=== PATIENT | male | born 1980 | race American Indian/Alaskan Native ===

== ENCOUNTER 2017-02-02 11:48 | Emergency (ER) | payer OTHER ==
[2017-02-02 11:49] VITALS: BMI 20.3
[2017-02-02 11:59] VITALS: TEMP 98.9
--- NOTE | 2017-02-02 12:14 | ED PDOC ---
Arrival/HPI - General Chief Complaint: Lower Extremity Problem/Injury Time Seen by Provider: 02/02/17 12:01 Historian: Patient - History of Present Illness Narrative History of Present Illness (Text): 02/02/17 12:04 A 36 year old male, with no significant past medical history, presents to the emergency department complaining of right foot 4th and 5th digit toe swelling pain for 2 weeks. Patient claims he cannot wear socks with his shoes. 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 Patient denies of fever or any other complaints. No PMD Time/Duration: < week (2 weeks) Past Medical History - Provider Review Nursing Documentation Reviewed: Yes - Infectious Disease Hx of Infectious Diseases: None - Tetanus Immunization Tetanus Immunization: Unknown - Past Medical History Past Medical History: No Previous - Cardiac Hx Cardiac Disorders: No - Pulmonary Hx Respiratory Disorders: No - Neurological Hx Neurological Disorder: Yes Hx Dizziness: Yes - HEENT Hx HEENT Disorder: No - Renal Hx Renal Disorder: No - Endocrine/Metabolic Hx Endocrine Disorders: No - Hematological/Oncological Hx Blood Disorders: No Hx Blood Transfusions: (NA) Hx Blood Transfusion Reaction: (NA) - Integumentary Hx Dermatological Disorder: No - Musculoskeletal/Rheumatological Hx Musculoskeletal Disorders: No Hx Falls: No - Gastrointestinal Hx Gastrointestinal Disorders: No - Genitourinary/Gynecological Hx Genitourinary Disorders: No - Psychiatric Hx Psychophysiologic Disorder: No Hx Depression: No Hx Emotional Abuse: No Hx Physical Abuse: No Hx Substance Use: No - Past Surgical History Past Surgical History: No Previous - Anesthesia Hx Anesthesia: No Hx Anesthesia Reactions: (NA) Hx Malignant Hyperthermia: (NA) - Suicidal Assessment Feels Threatened In Home Enviroment: No Family/Social History - Physician Review Nursing Documentation Reviewed: Yes Family/Social History: No Known Family HX Smoking Status: Heavy Smoker > 10 Cigarettes Daily Hx Alcohol Use: Yes Hx Substance Use: No Allergies/Home Meds Allergies/Adverse Reactions: Allergies No Known Allergies Allergy (Verified 09/01/15 12:37) Review of Systems - Physician Review All systems were reviewed & negative as marked: Yes - Review of Systems Constitutional: absent: Fevers Musculoskeletal: Other (right foot 4th & 5th digit toe swelling pain) Physical Exam Vital Signs Reviewed: Yes Vital Signs Temp Pulse Resp BP Pulse Ox 02/02/17 11:55 98.9 F 86 18 116/80 98 Temperature: Afebrile Blood Pressure: Normal Pulse: Regular Respiratory Rate: Normal Appearance: Positive for: Unkept Pain Distress: None Mental Status: Positive for: Alert and Oriented X 3 - Systems Exam Head: Present: Atraumatic, Normocephalic Pupils: Present: PERRL Extroacular Muscles: Present: EOMI Conjunctiva: Present: Normal Mouth: Present: Moist Mucous Membranes Neck: Present: Normal Range of Motion Respiratory/Chest: Present: Clear to Auscultation, Good Air Exchange. No: Respiratory Distress, Accessory Muscle Use Cardiovascular: Present: Regular Rate and Rhythm, Normal S1, S2. No: Murmurs Abdomen: Present: Normal Bowel Sounds. No: Tenderness, Distention, Peritoneal Signs Back: Present: Normal Inspection Upper Extremity: Present: Normal Inspection. No: Cyanosis, Edema Lower Extremity: Present: Erythema (mild erythema of right foot 4th and 5th digits), Other (intertriginous between 4th and 5th digit right foot, foul smell , no bone exposure) Neurological: Present: GCS=15, CN II-XII Intact, Speech Normal Skin: Present: Other (excoriation of right foot) Psychiatric: Present: Alert, Oriented x 3, Normal Insight, Normal Concentration Medical Decision Making ED Course and Treatment: 02/02/17 12:09 Impression: 36 year old male with right foot 4th and 5th digit swelling pain. Physical exam shows intertriginous between 4th and 5th digit right foot, skin excorasion, mild erythema, no bone exposure, foul smell. Differential Diagnosis included but are not limited to: Tinea Pedis vs. Trench Foot Plan: -- Right Foot X-Ray -- Ibuprofen -- Reassess and disposition Prior Visits: Notes and results from previous visits were reviewed. Patient was last seen in the emergency department on 06/27/2016 for penile abscess and left groin tenderness. Patient was discharged home. Progress Notes: 02/02/17 13:[address] Mendoza community service coordinator who came to evaluate patient. He believes it's not trench foot but more tinea pedis. He recommends Terbinafine 250mg QD x 14 days, Amoxicillin 500mg BID x 10days and Clotrimazole BID cream. Will have patient follow up with community service coordinator as outpatient. - RAD Interpretation Radiology Orders: 02/02/17 12:24 FOOT RIGHT 3 VIEWS ROUTINE [RAD] Stat - Medication Orders Current Medication Orders: Discontinued Medications Amoxicillin (Amoxil 500 Mg Cap) 500 mg PO STAT STA PRN Reason: Protocol Stop: 02/02/17 13:23 Ibuprofen (Motrin Tab) 600 mg PO STAT STA Stop: 02/02/17 12:25 Last Admin: 02/02/17 13:00 Dose: 600 mg - Scribe Statement The provider has reviewed the documentation as recorded by the Anitha Sebastian Provider Scribe Attestation: All medical record entries made by the Scribelif were at my direction and personally dictated by me. I have reviewed the chart and agree that the record accurately reflects my personal performance of the history, physical exam, medical decision making, and the department course for this patient. I have also personally directed, reviewed, and agree with the discharge instructions and disposition. Disposition/Present on Arrival - Present on Arrival Any Indicators Present on Arrival: No History of DVT/PE: No History of Uncontrolled Diabetes: No Urinary Catheter: No History of Decub. Ulcer: No History Surgical Site Infection Following: None - Disposition Have Diagnosis and Disposition been Completed?: Yes Diagnosis: Tinea pedis Disposition: HOME/ ROUTINE Disposition Time: 13:15 Patient Plan: Discharge Patient Problems: Current Active Problems Problem Status Onset Tinea pedis Acute Condition: IMPROVED Additional Instructions: Mr Wing, thank you for letting us take care of you today. Your provider was Dr. Rose. You were treated for Tinea Pedis. The emergency medical care you received today was directed at your acute symptoms. If you were prescribed any medication, please fill it and take as directed. It may take several days for your symptoms to resolve. Return to the Emergency Department if your symptoms worsen, do not improve, or if you have any other problems. Please contact your doctor or call one of the physicians/clinics you have been referred to that are listed on the Patient Visit Information form that is included in your discharge packet. Bring any paperwork you were given at discharge with you along with any medications you are taking to your follow up visit. Our treatment cannot replace ongoing medical care by a primary care provider (PCP) outside of the emergency department. Thank you for allowing the [facility] team to be part of your care today. If you had an X-Ray or CT scan: A Radiologist will review the ED reading if any change in treatment is needed we will contact you. If you had a blood, urine, or wound culture: It will take several days for the results, if any change in treatment is needed we will contact you. If you had an STI test: It will take 48 hours for the results. Please call after 1 week if you have not heard back. Prescriptions: Amoxicillin 500 mg PO BID #20 tablet Clotrimazole 1% Cream [Lotrimin 1%] 1 appl TP BID #1 tube Referrals: Valerio Mendoza DPM [Staff Provider] - Follow up with primary Forms: [facility] (Filipino), WORK NOTE
--- NOTE | 2017-02-02 13:32 | RAD ---
PROCEDURE: Right Foot Radiographs. HISTORY: foot pain r/o oste COMPARISON: None. FINDINGS: BONES: There is no acute displaced fracture or bone destruction. Bone alignment and mineralization are normal. JOINTS: Normal. SOFT TISSUES: Normal. OTHER FINDINGS: None. IMPRESSION: No evidence of bone erosion or destruction. No radiographic evidence for osteomyelitis. There is a persistent clinical concern, an MRI may be performed for further evaluation.
[2017-02-02 14:57] VITALS: BP 120/87; PULSE 82; RESP 16; O2SAT 97
== END 2017-02-02 14:11 | disposition home or self-care (01) ==
LOC: ED 11:48
DX: B35.3 Tinea pedis (principal)